=== PATIENT | female | born 1960 | race Caucasian/White ===

== ENCOUNTER → 2017-12-03 | Outpatient (CLI) | payer BC ==
--- NOTE | 2017-12-03 14:23 | RADIOLOGY IMAGING REPORT ---
FACILITY: PATIENT NAME: Britni Gonzalez : 1960 MR: [id number] V: [id number] EXAM DATE: ORDERING PHYSICIAN: ANTONIO STEWART TECHNOLOGIST: Location: [facility] Patient: Britni Gonzalez : 1960 Visit/Account:[id number] Date of Sevice: 12/03/2017 BONE MINERAL DENSITY Additional Pertinent history: Osteoporosis screening COMPARISON STUDIES: none FINDINGS: LUMBAR SPINE: The bone mineral density (BMD) measured from L1-L4 correlates with a Z-score of -2.3 and a T-score of -2.5 which is grossly as defined by the World Health Organization. The corresponding risk of fractur e in the lumbar spine is increased 5 times compared with a young adult reference population. HIP: Bone mineral density (BMD) measured in the left total hip correlates with a Z-score of -1.3 and a T- score of -1.6 which is osteopenia as defined by the World Health Organization. The corresponding risk of fracture in the hip is increased 3-4 times compared with a young adult reference population. Bone mineral density (BMD) measured in the left femoral neck region measures 0.77 g/cm2. IMPRESSION: 1. Lumbar spine: Osteoporosis. 2. Left hip: Osteopenia. Left femoral neck: bone mineral density is 0.77 g/cm2 FRAX WHO Fracture Risk Assessment Tool link: http://www.prince.ac.uk/FRAX/index.jsp The next DEXA scan of this patient should include the following sites: L1 - L4 and left hip PLEASE NOTE: 1. The World Health Organization defines low BMD as follows: T-score Normal > -1 Osteopenia -1 to -2.5 Osteoporosis < -2.5 without fractures Established osteoporosis < -2.5 with fractures 2. In general, you may wish to consider: Diagnosis Treatment Follow-up DEXA Normal BMD Prevention 2-3 years Osteopenia Prevention/therapy 1-2 years Osteoporosis Therapy Yearly 3. Fracture risk estimated from the T-score is more accurate for vertebral fractures (often spontaneo us) than for hip fractures. Report Dictated By: Roberto Dye MD at 12/03/2017 2:15 PM Report E-Signed By: Roberto Dye MD at 12/03/2017 2:20 PM WSN:[email or web address]
--- NOTE | 2017-12-04 12:21 | RADIOLOGY IMAGING REPORT ---
FACILITY: [facility] PATIENT NAME: KOREY DEE : [id number] MR: [id number] V: [id number] EXAM DATE: [id number] ORDERING PHYSICIAN: ANTONIO STEWART TECHNOLOGIST: Gwendolyn Ward PROCEDURE:BILATERAL DIGITAL SCREENING MAMMOGRAM WITH CAD ASSISTED INTERPRETATION & 3D TOMOSYNTHESIS COMPARISON:Baseline. TECHNIQUE: Bilateral CC & MLO 3D tomographic images were obtained. CAD was used. BREAST DENSITY: There are scattered fibroglandular densities. INDICATIONS:screening FINDINGS: There is no dominant mass, suspicious cluster of calcifications or persistent areas of architectural distortion. DIAGNOSTIC CATEGORY 1--NEGATIVE. RECOMMENDATIONS: ROUTINE MAMMOGRAM AND CLINICAL EVALUATION IN 1 YR. IMPRESSION: BIRADS 1: Negative. Dictated by: Jake Olivarez M.D. on 12/04/2017 at 9:17 Transcribed by: TAMMY on 12/04/2017 at 11:45 Approved by: Jake Olivarez M.D. on 12/04/2017 at 12:20 [facility]
== END ==
LOC: MAMO 01:12
PROVIDERS: ATTEND Nurse Practitioner Psychiatric/Mental Health
DX: Z13.820 Encounter for screening for osteoporosis (principal); Z12.31 Encounter for screening mammogram for malignant neoplasm of breast; Z00.00 Encounter for general adult medical examination without abnormal findings; M81.0 Age-related osteoporosis without current pathological fracture; M85.88 Other specified disorders of bone density and structure, other site
CPT/HCPCS: 77063; 77067; 77080